=== PATIENT | female | born 1985 | race Caucasian/White ===

== ENCOUNTER 2016-10-23 00:08 | Emergency (ER) | payer SELFPAY ==
[~2016-10-23] VITALS: Ht 167.6 cm; Wt 50.8 kg
[~2016-10-23 00:08] MED LIST: PYRI200T4 PO; SULF1TAB47 PO; Z.0.NO CURRENT MEDS
[2016-10-23 00:18] VITALS: BP 130/98; PULSE 97; RESP 12; TEMP 98.1; O2SAT 100
== END 2016-10-23 00:33 | disposition left against medical advice (07) ==
LOC: PHED 00:08
DX: R60.9 Edema, unspecified (principal); Z53.21 Procedure and treatment not carried out due to patient leaving prior to being seen by health care provider
CPT/HCPCS: 99281

== ENCOUNTER 2017-02-16 09:35 | Emergency (ER) | payer SELFPAY ==
[2017-02-16 09:38] VITALS: BP 135/80; PULSE 84; RESP 17; TEMP 97.8; O2SAT 97
[2017-02-16] MEDS ORDERED: AUGM875T3 PO (14:14)
== END 2017-02-16 09:45 | disposition left against medical advice (07) ==
LOC: NED 09:35
DX: Z53.21 Procedure and treatment not carried out due to patient leaving prior to being seen by health care provider (principal)
CPT/HCPCS: 99281

== ENCOUNTER 2017-02-16 12:17 | Emergency (ER) | payer SELFPAY ==
[~2017-02-16] VITALS: Ht 167.6 cm; Wt 50.0 kg
[2017-02-16 12:19] VITALS: BP 121/84; PULSE 86; RESP 18; TEMP 98.2; O2SAT 99
--- NOTE | 2017-02-16 12:45 | PD ---
Physical Exam Time Seen by Provider: 13:04 Narrative I was asked by Dr. Betancur to repair a left inner lip laceration. See his note for full details of H&P Data Data Last Documented VS Vital Signs Date Time Temp Pulse Resp B/P (MAP) Pulse Ox O2 Delivery O2 Flow Rate FiO2 02/16/17 12:19 98.2 86 18 121/84 (96) 99 Orders Orders Lidocaine Pf 1% Inj (Xylocaine-Mpf 1% In (02/16/17 13:00) Ct Brain W/O Iv Contrast(Rout) (02/16/17 ) Tetanus/Diphtheria Tox Adult (Tetanus/Di (02/16/17 13:00) MDM Medical Record Reviewed: Yes Supervised Visit with OLIVE: No Differential Diagnosis lip laceration Narrative Course 31 yr old female here with left inner lip laceration near the corner of the mouth. There is no damage to the shilo border. Patient gave verbal consent and declined lidocaine injection. 3 simple interrupted dissolvable sutures were placed. Patient tolerated without incident. Procedures Procedure Narrative LACERATION LOCATION: Left side of the lip/corner inner lip LENGTH: 1 cm NUMBER OF STITCHES/SAMANTHA: 3 REPAIR: The area of the laceration was prepped with Betadine and sterilely draped. The patient declined local anesthesia.. The wound was copiously irrigated and explored without evidence of foreign body, tendon injury or neurovascular injury. The wound was closed using 5-0 chromic gut. This was a single layer repair. Patient tolerated the procedure well. Condition: Stable Deidre Lemons Feb 16, 2017 12:45
[2017-02-16] MEDS ORDERED: LIDOCAINE HCL 1% PF 30 ML VIAL INFIL ONE (13:00)
[2017-02-16] MEDS ORDERED: TETANUS/DIPHTHERIA TOXOID ADULT 0.5 ML VIAL IM ONE (13:00)
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
[2017-02-16] MEDS ORDERED: AUGM875T3 PO (14:14)
== END 2017-02-16 14:25 | disposition home or self-care (01) ==
LOC: NEPD 12:17
DX: S09.90XA Unspecified injury of head, initial encounter (principal); G44.319 Acute post-traumatic headache, not intractable; S01.81XA Laceration without foreign body of other part of head, initial encounter; Y04.0XXA Assault by unarmed brawl or fight, initial encounter; Z23 Encounter for immunization
CPT/HCPCS: 12001; 70450; 90471; 90714

== ENCOUNTER 2017-06-13 03:07 | Emergency (ER) | payer SELFPAY ==
[~2017-06-13] VITALS: Ht 167.6 cm; Wt 52.0 kg
[~2017-06-13 03:07] MED LIST changes: +AUGM875T3 PO; -PYRI200T4 PO; -SULF1TAB47 PO; -Z.0.NO CURRENT MEDS
[2017-06-13 03:08] VITALS: BP 110/83; PULSE 105; RESP 16; TEMP 98.1; O2SAT 98
[2017-06-13] MEDS ORDERED: SODIUM CHLORIDE 0.9% FLUSH 10 ML FLUSH IV FLUSH PRN (03:30)
[2017-06-13 03:59] LABS: AUTOMATED NEUTROPHIL # 6.4 TH/MM3 (1.8-7.7); BASOPHIL % 0.4 % (0.0-2.0); EOSINOPHIL # 0.1 TH/MM3 (0-0.4); EOSINOPHIL % 1.2 % (0.0-4.0); HEMATOCRIT 38.1 % (35.0-46.0); HEMOGLOBIN 12.5 GM/DL (11.6-15.3); LYMPH % 17.7 % (9.0-44.0); LYMPHOCYTE # 1.5 TH/MM3 (1.0-4.8); MEAN CORPUSCULAR HEMOGLOBIN 28.5 PG (27.0-34.0); MEAN CORPUSCULAR HGB CONC 32.8 % (32.0-36.0); MEAN PLATELET VOLUME 7.6 FL (7.0-11.0); MONO % 7.2 % (0.0-8.0); MONOCYTE # 0.6 TH/MM3 (0-0.9); NEUT % 73.5 % (16.0-70.0); PLATELET COUNT 201 TH/MM3 (150-450); RED BLOOD COUNT 4.38 MIL/MM3 (4.00-5.30); RED CELL DISTRIBUTION WIDTH 14.9 % (11.6-17.2); WHITE BLOOD COUNT 8.8 TH/MM3 (4.0-11.0)
[2017-06-13 04:15] LABS: ALKALINE PHOSPHATASE 116 U/L (45-117); TOTAL BILIRUBIN ADULT 0.2 MG/DL (0.2-1.0); TOTAL PROTEIN 8.2 GM/DL (6.4-8.2)
[2017-06-13 04:17] LABS: ALBUMIN 3.4 GM/DL (3.4-5.0); ALT (GPT) 26 U/L (10-53); AST (GOT) 21 U/L (15-37); BICARBONATE 24.7 MEQ/L (21.0-32.0); BLOOD UREA NITROGEN 23 MG/DL (7-18); CALCIUM 8.1 MG/DL (8.5-10.1); CHLORIDE 106 MEQ/L (98-107); CREATININE 0.82 MG/DL (0.50-1.00); GLOMERULAR FILTRATION RATE 82 ML/MIN (>89); GLUCOSE,RANDOM 82 MG/DL (74-106); SODIUM (NA) 137 MEQ/L (136-145)
[2017-06-13] MEDS ORDERED: diphenhydrAMINE HCL 50 MG/ML VIAL IV PUSH ONE (04:30)
--- NOTE | 2017-06-13 04:49 | PD ---
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 Patient denies any significant pelvic pain, is unsure if she is or not. Patient denies any lightheadedness or shortness of breath. Patient's drug use discussed at length, patient is aware of drug rehabilitation centers, currently states she is not ready to quit. Denies any fevers chills sweats, patient does note multiple skin lesions over most of body surface from self picking has been happening since she started doing drugs. 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) Reproductive: Yes (OVARION CYST NOT SURE WHAT SIDE) Immunizations Current: Yes Seizures: No Thyroid Disease: No Ulcer: No ?: Not LMP: 06/12/17 : 0 Past Surgical History Surgical History: No Previous Surgery Other Surgery: No Social History Alcohol Use: Yes (OCCASSIONAL) Tobacco Use: Yes (1 PPD) Substance Use: No Allergies-Medications (Allergen,Severity, Reaction): Coded Allergies: No Known Allergies (Verified Adverse Reaction, Unknown, 06/13/17) Reported Meds & Prescriptions Reported Meds & Active Scripts Active No Active Prescriptions or Reported Medications Narrative Medication Allergies and medications reviewed Review of Systems Except as stated in HPI: all other systems reviewed are Neg General / Constitutional: No: Fever Eyes: No: Visual changes HENT: No: Headaches Cardiovascular: No: Chest Pain or Discomfort Respiratory: No: Shortness of Breath Gastrointestinal: No: Abdominal Pain Genitourinary: Positive: Vaginal Bleeding, No: Dysuria, Discharge, Dysmenorrhea Musculoskeletal: No: Pain Skin: Positive Rash Neurologic: No: Weakness Psychiatric: No: Depression Endocrine: No: Polydipsia Hematologic/Lymphatic: No: Easy Bruising Physical Exam Narrative GENERAL: Awake alert oriented 3 no acute distress. Patient is writhing and scratching consistent with recent drug use SKIN: Warm and dry. Disseminated rash from multiple lesions HEAD: Atraumatic. Normocephalic. EYES: Pupils equal and round. No scleral icterus. No injection or drainage. ENT: No nasal bleeding or discharge. Mucous membranes pink and moist. NECK: Trachea midline. No JVD. Supple full range motion CARDIOVASCULAR: Regular rate and rhythm. S1-S2 no murmurs or gallops RESPIRATORY: No accessory muscle use. Clear to auscultation. Breath sounds equal bilaterally. GASTROINTESTINAL: Abdomen soft, non-tender, nondistended. Hepatic and splenic margins not palpable. Pelvic exam offered, deferred by patient MUSCULOSKELETAL: Extremities without clubbing, cyanosis, or edema. No obvious deformities. NEUROLOGICAL: Awake and alert. No obvious cranial nerve deficits. Motor grossly within normal limits. Five out of 5 muscle strength in the arms and legs. Normal speech. PSYCHIATRIC: Appropriate mood and affect; insight and judgment normal. Data Data Last Documented VS Vital Signs Date Time Temp Pulse Resp B/P (MAP) Pulse Ox O2 Delivery O2 Flow Rate FiO2 06/13/17 03:30 Room Air 06/13/17 03:08 98.1 105 16 98 Orders Orders Beta Hcg (Quant/Titer) (06/13/17 03:27) Complete Blood Count With Diff (06/13/17 03:27) Comprehensive Metabolic Panel (06/13/17 03:27) Urinalysis - C+S If Indicated (06/13/17 03:27) Iv Access Insert/Monitor (06/13/17 03:27) Ecg Monitoring (06/13/17 03:27) Oximetry (06/13/17 03:27) Sodium Chloride 0.9% Flush (Ns Flush) (06/13/17 03:30) Drug Screen, Random Urine (06/13/17 03:27) Diphenhydramine Inj (Benadryl Inj) (06/13/17 04:30) Labs Laboratory Tests Test 06/13/17 03:47 White Blood Count 8.8 TH/MM3 Red Blood Count 4.38 MIL/MM3 Hemoglobin 12.5 GM/DL Hematocrit 38.1 % Mean Corpuscular Volume 87.0 FL Mean Corpuscular Hemoglobin 28.5 PG Mean Corpuscular Hemoglobin Concent 32.8 % Red Cell Distribution Width 14.9 % Platelet Count 201 TH/MM3 Mean Platelet Volume 7.6 FL Neutrophils (%) (Auto) 73.5 % Lymphocytes (%) (Auto) 17.7 % Monocytes (%) (Auto) 7.2 % Eosinophils (%) (Auto) 1.2 % Basophils (%) (Auto) 0.4 % Neutrophils # (Auto) 6.4 TH/MM3 Lymphocytes # (Auto) 1.5 TH/MM3 Monocytes # (Auto) 0.6 TH/MM3 Eosinophils # (Auto) 0.1 TH/MM3 Basophils # (Auto) 0.0 TH/MM3 CBC Comment DIFF FINAL Differential Comment Blood Urea Nitrogen 23 MG/DL Creatinine 0.82 MG/DL Random Glucose 82 MG/DL Total Protein 8.2 GM/DL Albumin 3.4 GM/DL Calcium Level 8.1 MG/DL Alkaline Phosphatase 116 U/L Aspartate Amino Transf (AST/SGOT) 21 U/L Alanine Aminotransferase (ALT/SGPT) 26 U/L Total Bilirubin 0.2 MG/DL Sodium Level 137 MEQ/L Potassium Level 3.8 MEQ/L Chloride Level 106 MEQ/L Carbon Dioxide Level 24.7 MEQ/L Anion Gap 6 MEQ/L Estimat Glomerular Filtration Rate 82 ML/MIN Human Chorionic Gonadotropin, Quant LESS THAN 1 MIU/ML MDM Medical Decision Making Medical Screen Exam Complete: Yes Emergency Medical Condition: Yes Medical Record Reviewed: Yes Differential Diagnosis Dysfunctional uterine bleeding, ectopic , chronic drug abuse Narrative Course Labs reviewed, no significant abnormalities. Patient's bleeding has decreased. Patient encouraged to follow-up with drug rehabilitation, nightly as outpatient. If bleeding continues, outpatient transvaginal ultrasound recommended. If bleeding worsens, patient is instructed to return. 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 Recommend transvaginal ultrasound if bleeding continues. Return promptly if condition worsens. Recommend drug rehabilitation. Scripts No Active Prescriptions or Reported Meds Disposition: 01 DISCHARGE HOME Condition: Stable Les Nair MD Jun 13, 2017 04:49
== END 2017-06-13 04:59 | disposition home or self-care (01) ==
LOC: NEPC 03:07
DX: N93.8 Other specified abnormal uterine and vaginal bleeding (principal); N83.209 Unspecified ovarian cyst, unspecified side; F14.10 Cocaine abuse, uncomplicated; F17.200 Nicotine dependence, unspecified, uncomplicated
CPT/HCPCS: 80053; 84702; 85025; 96374; 99284; J1200

== ENCOUNTER 2017-09-12 16:20 | Emergency (ER) | payer SELFPAY ==
[~2017-09-12] VITALS: Ht 167.6 cm; Wt 52.0 kg
[2017-09-12 16:52] VITALS: BP 132/79; PULSE 107; RESP 18; TEMP 98.7; O2SAT 100
== END 2017-09-12 20:35 | disposition left against medical advice (07) ==
LOC: NETRI 16:20
DX: J02.9 Acute pharyngitis, unspecified (principal)
CPT/HCPCS: 99281